=== PATIENT | female | born 1945 | race Caucasian/White ===

== ENCOUNTER 2017-06-27 08:30 | Inpatient (IN) | payer MEDICARE, OTHER ==
[~2017-06-27] VITALS: Ht 152.4 cm; Wt 69.9 kg
--- NOTE | 2017-06-27 08:40 | NUR ---
[id number] from home C/O headache since midnight. Patient is a/ox 4. breathing even and unlabored. no sob, nad. Patient is also hypertensive. safety and comfort measures in place. awaiting md orders.
--- NOTE | 2017-06-27 08:51 | NUR ---
URINE OBTAINED SENT TO LAB
--- NOTE | 2017-06-27 08:58 | NUR ---
NEW IV STARTED ON LAC, 20G. BLOOD DRAWN AND SENT TO LAB.
[2017-06-27 09:06] LABS: APPEARANCE,URINE Clear (CLEAR); BILIRUBIN,URINE Negative (NEGATIVE); BLOOD, URINE Negative Ery/uL (NEGATIVE); COLOR,URINE Yellow (YELLOW); KETONES,URINE Negative (NEGATIVE); LEUKOCYTE ESTERASE ,URINE Negative (NEGATIVE); NITRITE, URINE Negative (NEGATIVE); PROTEIN,URINE 100 mg/dl (NEGATIVE); UGLUCOSE Negative (NEGATIVE); UROBILINOGEN,URINE 0.2 EU/dL (0.2)
[2017-06-27 09:08] LABS: BASOPHILS % (AUTO) 0.8 % (0.0-2.0); EOSINOPHILS % (AUTO) 1.9 % (0.0-6.0); HEMATOCRIT 28 % (33-45); LYMPHOCYTES # (AUTO) 1.1 /CMM (0.8-4.8); LYMPHOCYTES % (AUTO) 18.1 % (20.0-44.0); MEAN CORPUSCULAR HGB CONC 35 g/dl (31.0-36.0); MEAN CORPUSCULAR VOLUME 84 fL (82-100); MONOCYTES # (AUTO) 0.8 /CMM (0.1-1.30); MONOCYTES % (AUTO) 14.3 % (2.0-12.0); NEUTROPHILS # (AUTO) 3.9 /CMM (1.8-8.9); NEUTROPHILS % (AUTO) 64.9 % (43.0-81.0); PLATELET COUNT (AUTO) 201 /CMM (150-450); RDW COEFFICIENT OF VARIATION 13.2 (11.5-15.0); RED BLOOD CELL COUNT(AUTO) 3.35 MIL/uL (4.0-5.2); WHITE BLOOD COUNT (AUTO) 5.9 K/uL (4.3-11.0)
--- NOTE | 2017-06-27 09:09 | NUR ---
patient taken to ct via stretcher.
[2017-06-27 09:17] LABS: BACTERIA,URINE None seen /HPF (None Seen); RBC,URINE 0-3 /HPF (0-2); SQUAMOUS EPITHELIAL CELL,UR Few /HPF (None Seen); WBC,URINE 0-3 /HPF (0-3)
--- NOTE | 2017-06-27 09:18 | NUR ---
PATIENT RETURNED FROM CT IN STABLE CONDITION.
[2017-06-27 09:19] LABS: ALANINE AMINOTRANSFERASE 29 U/L (12-78); ALBUMIN 3.6 g/dL (3.4-5.0); ALKALINE PHOSPHATASE 65 U/L (46-116); ASPARTATE AMINOTRANSFERASE 34 U/L (15-37); BILIRUBIN,DIRECT 0.2 mg/dL (0.0-0.2); BILIRUBIN,TOTAL 0.5 mg/dL (0.2-1.0); CALCIUM, SERUM 8.8 mg/dL (8.5-10.1); CARBON DIOXIDE 23 mmol/L (21-32); CREATININE 3.3 mg/dL (0.6-1.3); GLUCOSE 136 mg/dL (74-106); POTASSIUM 3.3 mmol/L (3.5-5.1); TOTAL PROTEIN, SERUM 7.3 g/dL (6.4-8.2); UREA NITROGEN, BLOOD 37 mg/dL (7-18)
[2017-06-27 09:21] LABS: CHLORIDE 78 mmol/L (98-107); INR 0.92 (0.85-1.15); SODIUM SERUM 112 mmol/L (136-145); TROPONIN I < 0.017 ng/mL (0.00-0.056)
--- NOTE | 2017-06-27 10:22 | NUR ---
[facility] PAGED [phone]
[2017-06-27] MEDS ORDERED: IV NS 0.9% 500 ML BAG IV ONE (10:30)
[2017-06-27] MEDS ORDERED: CALC500T51 PO (10:35)
[2017-06-27] MEDS ORDERED: ICOS1CAP PO (10:35)
[2017-06-27] MEDS ORDERED: SENN-167 PO (10:35)
[2017-06-27] MEDS ORDERED: METO10TA8 PO (10:35)
[2017-06-27] MEDS ORDERED: CARV25TA2 PO (10:35)
[2017-06-27] MEDS ORDERED: DEXL60CA3 PO (10:35)
[2017-06-27] MEDS ORDERED: FEBU40TA PO (10:35)
[2017-06-27] MEDS ORDERED: NATE120T PO (10:35)
[2017-06-27] MEDS ORDERED: LINA5TAB PO (10:35)
[2017-06-27] MEDS ORDERED: HYDR-4076 PO (10:35)
[2017-06-27] MEDS ORDERED: CLON0.2T PO (10:35)
[2017-06-27] MEDS ORDERED: GABA-532 PO (10:35)
--- NOTE | 2017-06-27 10:47 | NUR ---
REPORT GIVEN TO REANNA SMITH FOR EDITH UPON ADIMSSION.
[2017-06-27] MEDS ORDERED: IV NS 0.9% 1,000 ML IV PRN (11:11)
[2017-06-27] MEDS ORDERED: ACETAMINOPHEN 325 MG TABLET PO PRN (11:30)
[2017-06-27] MEDS ORDERED: MAG HYDROX/AL HYDROX/SIMETH 30 ML UDC PO PRN (11:30)
[2017-06-27] MEDS ORDERED: ZOLPIDEM TARTRATE 5 MG TABLET PO PRN (11:30)
[2017-06-27] MEDS: LINAGLIPTIN 5 MG TABLET PO SCH (11:30)
[2017-06-27] MEDS ORDERED: CLONIDINE HCL 0.2 MG TABLET PO PRN (11:30)
[2017-06-27] MEDS ORDERED: ONDANSETRON HCL/PF 4 MG/2 ML VIAL IVP PRN (11:30)
[2017-06-27] MEDS ORDERED: MAGNESIUM HYDROXIDE 30 ML UDC PO PRN (11:30)
[2017-06-27] MEDS ORDERED: Z GUARD REMEDY 2 OZ OINT TP PRN (11:30)
[2017-06-27] MEDS: PANTOPRAZOLE 40 MG VIAL IV SCH (11:30)
[2017-06-27] MEDS: CARVEDILOL 12.5 MG TABLET PO SCH ×2 (11:30→16:52)
[2017-06-27] MEDS ORDERED: HYDROCODONE/APAP 5/325MG 1 EACH TABLET PO PRN (11:30)
[2017-06-27] MEDS: SENNOSIDES 8.6 MG TABLET PO SCH ×2 (11:30→16:56)
--- NOTE | 2017-06-27 11:30 | NUR ---
PATIENT TRANSPORTED TO [facility] VIA ACLS PROTOCOL. RNREANNA TO PROVIDE EDITH.
[2017-06-27] MEDS ORDERED: POTASSIUM CHLORIDE 20 MEQ TAB.PRT.SR PO ONE ×3 (12:00→18:30)
[2017-06-27] MEDS ORDERED: IV Sodium Chloride 3% 500 ML 500 ML IV ONE (12:00)
[2017-06-27 13:00] VITALS: BP 134/96
[2017-06-27] MEDS ORDERED: hydrALAZINE HCL 25 MG TABLET PO SCH (13:00)
--- NOTE | 2017-06-27 13:00 | NUR ---
SENIOR QC TECHNICIAN RECEIVED REPORT FROM PALOMO SKINNER RN VIA PHONE. PT. WAS SEEN IN ROOM 317 BED 2 WITH DAUGHTER AT BEDSIDE. PT. IS A&OX4. VITALS WNL. PT. C/O RIGHT ARM, AND FOOT NUMBNESS, WITH TINGLING. NEURO CHECK WAS PERFORMED, AND WAS NOTIFIED OF PT.'S CONDITION. NEW ORDER WAS GIVEN FOR A STAT MRI OF THE BRAIN WITHOUT CONTRAST. ALL NEEDS WERE MET AT THIS TIME, WILL CONTINUE TO ASSESS AND MONITOR.
--- NOTE | 2017-06-27 13:15 | NUR ---
STORES [employer] MONITOR READING SINUS RHYTHM 70'S.
[2017-06-27 14:56] LABS: CALCIUM, SERUM 7.8 mg/dL (8.5-10.1); CREATININE 3.4 mg/dL (0.6-1.3); POTASSIUM 2.8 mmol/L (3.5-5.1)
[2017-06-27] MEDS: CALCIUM CARBONATE (1250) 500 MG TABLET PO SCH (15:45)
[2017-06-27] MEDS: NATEGLINIDE 60 MG TABLET PO SCH ×2 (15:49→16:56)
[2017-06-27 16:00] VITALS: BP 161/78
--- NOTE | 2017-06-27 17:00 | NUR ---
RN NOTE PT. REQUESTED TO HOLD BP MEDICATION DUE TO BP 119/69, AND DAUGHTER REPORTED THAT PT. TAKES BP MEDS AT HOME AT AROUND 9 PM. MEDICATION WAS HELD.
[2017-06-27 17:56] LABS: URINE SODIUM, RANDOM 51 mmol/l (40-220)
[2017-06-27 18:42] LABS: OSMOLALITY,URINE 158 mOS/kg (340-1090)
--- NOTE | 2017-06-27 19:30 | NUR ---
DENTAL TECH OPENING NOTES: PATIENT IN BED, AOX4, ON ROOM AIR, BREATHING EVEN AND UNLABORED, APPEARS CALM AND IN NO DISTRESS, DENIES PAIN, HEADACHE OR N/V. DAUGHTER AT BEDSIDE. PIV OVER LAC G 20 INTACT AND INFUSING WELL WITH 3% NS RUNNING AT 20 ML/HR. EDUCATED PATIENT AND DTR RE FREE WATER RESTRICTION OF 400 ML/DAY. PROVIDED FOR COMFORT AND SAFETY, BED IN LOWEST AND LOCKED POSITION, SIDERAILS UP X 3, CALL LIGHT WITHIN REACH. WILL CONT TO MONITOR.
--- NOTE | 2017-06-27 19:45 | NUR ---
[employer] ARCHITECT/CLOSING NOTES PT. IS IN BED A&OX4, WITH DAUGHTER AT BEDSIDE. BREATHING UNLABORED ON ROOM AIR, NO SOB. NO S/S OF ACUTE DISTRESS. 3% NORMAL SALINE FLUIDS RUNNING AT 20 ML/HR. BED IS IN LOWEST, AND LOCKED POSITION. 2 SIDE RAILS UP, AND INSTRUCTED PT. TO USE CALL LIGHT FOR ASSISTANCE. WILL ENDORSE REPORT TO NURSE.
[2017-06-27 20:00] VITALS: BP 124/55
[2017-06-27 20:01] VITALS: BP 124/55
--- NOTE | 2017-06-27 20:30 | NUR ---
RN NOTES: SPOKE TO PHARMACISTCARMINA. PER DAUGHTER, PATIENT USUALLY GETS THE HYDRALAZINE AT HOME THREE TIMES A DAY BUT AT A SCHEDULE OF 9AM-3PM-9PM. INFORMED PHARMACIST RE SCHEDULE. MEDICATION SCHEDULE ADJUSTED. WILL CONT TO MONITOR.
[2017-06-27 21:00] VITALS: BP 139/71
--- NOTE | 2017-06-27 21:20 | NUR ---
RN NOTES: RECHECKED BP AT 139/71, HR: 67. PATIENT HAS SCHEDULED HYDRALAZINE AT THIS TIME, HOWEVER, PER DAUGHTER, AT HOME, SHE HOLDS IT IF SBP IS 140 MMHG OR LOWER. SHE ASKED FOR ANOTHER BP CHECK AT 2200 PM. DID NOT ADMINISTER HYDRALAZINE AT THIS TIME.
[2017-06-27 22:00] VITALS: BP 139/59
[2017-06-27] MEDS: hydrALAZINE HCL 25 MG TABLET PO SCH (22:00)
--- NOTE | 2017-06-27 22:10 | NUR ---
RN NOTES: RECHECKED BP AGAIN, THIS TIME 139/59. HYDRALAZINE NOT GIVEN. HOWEVER, DAUGHTER REQUESTED THAT BP BE RECHECKED AGAIN AT 0000 MIDNIGHT BEFORE WE CAN TOTALLY NON ADMINISTER HYDRALAZINE. EXPLAINED THAT THERE IS ALSO PRN CLONIDINE, HOWEVER, DTR PREFERS THAT HYDRALAZINE BE GIVEN FOR SBP >140 MMHG, AND THAT CLONIDINE IS ONLY FOR "EMERGENCY".
[2017-06-27] MEDS: GABAPENTIN 100 MG CAPSULE PO SCH (22:17)
[2017-06-28] VITALS: BP 109/58
[2017-06-28 04:00] VITALS: BP 143/66
[2017-06-28 04:15] VITALS: BP 143/66
[2017-06-28 06:57] VITALS: BP 130/65
--- NOTE | 2017-06-28 06:57 | NUR ---
DIESEL FLEET MECHANIC CLOSING NOTES: PATIENT IN BED, AOX4, ON ROOM AIR, BREATHING EVEN AND UNLABORED. APPEARS CALM AND IN NO DISTRESS. DENIES PAIN. PIV OVER LAC G 20 INTACT AND STILL INFUSING WITH 3% NS RUNNING AT 20 ML/HR. REITERATED INSTRUCTIONS RE KEEPING FREE WATER INTAKE TO 400 ML/DAY, REMAINING 100 ML WATER WILL BE FOR UNTIL NOONTIME. DUE MEDS GIVEN, PROVIDED FOR COMFORT AND SAFETY. BED IN LOWEST AND LOCKED POSITION, SIDERAILS UP X 3, CALL LIGHT WITHIN REACH. DAUGHTER AT BEDSIDE. WILL ENDORSE TO AM RN FOR EDITH.
[2017-06-28] MEDS: SENNOSIDES 8.6 MG TABLET PO SCH ×2 (07:04→18:06)
--- NOTE | 2017-06-28 08:00 | NUR ---
CAR FILLER AM NOTES: PATIENT IN BED, AOX4, ON ROOM AIR, BREATHING EVEN AND UNLABORED. APPEARS CALM AND IN NO DISTRESS. DENIES PAIN. PIV OVER LAC G 20 INTACT AND STILL INFUSING WITH 3% NS RUNNING AT 20 ML/HR. REITERATED INSTRUCTIONS RE KEEPING FREE WATER INTAKE TO 400 ML/DAY, REMAINING 100 ML WATER WILL BE FOR UNTIL NOONTIME. DUE MEDS GIVEN, PROVIDED FOR COMFORT AND SAFETY. BED IN LOWEST AND LOCKED POSITION, SIDERAILS UP X 3, CALL LIGHT WITHIN REACH. DAUGHTER AT BEDSIDE.
[2017-06-28 08:20] LABS: HEMATOCRIT 27 % (33-45); HEMOGLOBIN 9.2 g/dL (11.5-14.8); MEAN CORPUSCULAR HGB CONC 34 g/dl (31.0-36.0); MEAN CORPUSCULAR VOLUME 87 fL (82-100); PLATELET COUNT (AUTO) 188 /CMM (150-450); RDW COEFFICIENT OF VARIATION 13.6 (11.5-15.0); RED BLOOD CELL COUNT(AUTO) 3.14 MIL/uL (4.0-5.2); WHITE BLOOD COUNT (AUTO) 5.6 K/uL (4.3-11.0)
[2017-06-28 08:31] LABS: ALBUMIN 3.2 g/dL (3.4-5.0); BILIRUBIN,TOTAL 0.4 mg/dL (0.2-1.0); CREATININE 3.9 mg/dL (0.6-1.3); MAGNESIUM 1.6 mg/dL (1.8-2.4); PHOSPHORUS 5.3 mg/dL (2.5-4.9); POTASSIUM 3.6 mmol/L (3.5-5.1); TOTAL PROTEIN, SERUM 6.1 g/dL (6.4-8.2)
[2017-06-28 08:34] LABS: THYROID STIMULATING HORMONE 5.309 uIU/mL (0.358-3.74); URIC ACID 5.7 mg/dL (2.6-7.2)
[2017-06-28] MEDS: LINAGLIPTIN 5 MG TABLET PO SCH (09:33)
[2017-06-28] MEDS: hydrALAZINE HCL 25 MG TABLET PO SCH ×3 (09:33→21:00)
[2017-06-28] MEDS: PANTOPRAZOLE 40 MG VIAL IV SCH (09:33)
[2017-06-28] MEDS: CARVEDILOL 12.5 MG TABLET PO SCH ×2 (09:34→18:05)
[2017-06-28] MEDS: CALCIUM CARBONATE (1250) 500 MG TABLET PO SCH (09:34)
[2017-06-28] MEDS: NATEGLINIDE 60 MG TABLET PO SCH ×3 (09:36→18:05)
[2017-06-28 11:05] LABS: EOSINOPHILS % (MANUAL) 2 % (0-4); LYMPHOCYTES % (MANUAL) 26 % (16-48); MONOCYTES % (MANUAL) 8 % (0-11.0); NEUTROPHILS % (MANUAL) 64 (42-76)
[2017-06-28] MEDS ORDERED: IV NS 0.9% 1,000 ML BAG IV SCH (12:00)
[2017-06-28 12:14] LABS: OSMOLALITY,URINE 166 mOS/kg (340-1090)
[2017-06-28 12:23] LABS: URINE SODIUM, RANDOM 42 mmol/l (40-220)
[2017-06-28] MEDS: ASPIRIN EC 325 MG TABLET.DR PO SCH (12:30)
[2017-06-28] MEDS: IV NS 0.9% 1,000 ML IV PRN (13:23)
[2017-06-28] MEDS: Magnesium 1GM/D5W 100ML PREMIX 100 ML IV SCH ×2 (13:23→14:49)
[2017-06-28 16:11] VITALS: BP 118/61
[2017-06-28 16:47] LABS: CREATININE 3.9 mg/dL (0.6-1.3); POTASSIUM 3.3 mmol/L (3.5-5.1)
--- NOTE | 2017-06-28 18:35 | NUR ---
DR VICTORYAn aware of tpt's sodium level of 128 with no new order.
--- NOTE | 2017-06-28 19:00 | NUR ---
PT RESTING IN BED SURROUNDED BY HER FAMILY MEMBERS AT BEDSIDE.DENYING ANY PAIN OR DISTRESS.WITH ONGOING IVF OF NS AT 50 ML/HR INFUSING WELL.CALL LIGHT PLACED WITHIN REACH.
--- NOTE | 2017-06-28 19:30 | NUR ---
MS RN OPENING NOTES: PATIENT SITTING ON CHAIR, HAVING DINNER WITH FAMILY IN ROOM. ON ROOM AIR, BREATHING EVEN AND UNLABORED, BREATH SOUNDS CLEAR TO AUSCULTATION, APPEARS CALM AND IN NO DISTRESS, DENIES PAIN. PIV OVER LAC G 20 INTACT AND INFUSING WELL WITH NS RUNNING AT 50 ML/HR. PER DAUGHTER/ CAREGIVER, PATIENT SEEMS TO BE STRONGER AND FEELING BETTER. PROVIDED FOR COMFORT AND SAFETY. BED IN LOWEST AND LOCKED POSITION, SIDERAILS UP X 3, CALL LIGHT WITHIN REACH. WILL CONT TO MONITOR.
[2017-06-28 20:00] VITALS: BP 152/71
[2017-06-28] MEDS: GABAPENTIN 100 MG CAPSULE PO SCH (21:15)
--- NOTE | 2017-06-28 21:18 | NUR ---
RN NOTES: BP RECHECKED AT 115/63, HR: 63 OVER R ARM, 116/57 OVER LEFT ARM. HELD HYDRALAZINE FOR NOW, BUT DAUGHTER WANTS BP TO BE RECHECKED AT 0000 MIDNIGHT AND IF WARRANTED, TO GIVE HYDRALAZINE.
[2017-06-28] MEDS ORDERED: ATORVASTATIN 40 MG TABLET PO SCH (22:00)
--- NOTE | 2017-06-28 22:07 | NUR ---
RN NOTES: PATIENT HAD A REPEAT BMP WHICH RESULTED AT 1615 PM TODAY. SERUM K: 3.3, DECREASED FROM THE AM SERUM K WHICH WAS 3.3. HOWEVER, BUN AND CREA REMAINS ELEVATED. CALLED DR MEDELLIN TO SEE IF SHE WILL ORDER REPLACEMENT. AWAITING CALL BACK.
--- NOTE | 2017-06-28 22:34 | NUR ---
RN NOTES: RECEIVED CALL BACK FROM DR MEDELLIN, PER , REPLACEMENT WILL BE DONE IN AM, NO NEED TO REPLACE K FOR NOW. WILL RECHECK LABS.
[2017-06-29 00:24] VITALS: BP 124/61
[2017-06-29] MEDS: SENNOSIDES 8.6 MG TABLET PO SCH (06:08)
[2017-06-29] MEDS: IV NS 0.9% 1,000 ML IV PRN (07:05)
--- NOTE | 2017-06-29 07:08 | NUR ---
MS RN CLOSING NOTES: PATIENT IN BED, AOX4, ON ROOM AIR, BREATHING EVEN AND UNLABORED. APPEARS CALM AND IN NO DISTRESS. PIV OVER LAC G 20 INTACT AND PATENT, INFUSING WELL WITH NS RUNNING AT 50 ML/HR. PROVIDED FOR COMFORT AND SAFETY. BED IN LOWEST AND LOCKED POSITION, SIDERAILS UP X 3, CALL LIGHT WITHIN REACH. NO ACUTE CHANGE IN CONDITION NOTED THROUGH SHIFT. WILL ENDORSE TO AM RN FOR EDITH.
[2017-06-29 07:19] LABS: BASOPHILS % (AUTO) 0.6 % (0.0-2.0); EOSINOPHILS % (AUTO) 3.4 % (0.0-6.0); HEMATOCRIT 26 % (33-45); HEMOGLOBIN 8.8 g/dL (11.5-14.8); LYMPHOCYTES # (AUTO) 1.8 /CMM (0.8-4.8); LYMPHOCYTES % (AUTO) 26.6 % (20.0-44.0); MEAN CORPUSCULAR HGB CONC 34 g/dl (31.0-36.0); MEAN CORPUSCULAR VOLUME 86 fL (82-100); MONOCYTES # (AUTO) 0.9 /CMM (0.1-1.30); MONOCYTES % (AUTO) 13.1 % (2.0-12.0); NEUTROPHILS # (AUTO) 3.8 /CMM (1.8-8.9); NEUTROPHILS % (AUTO) 56.3 % (43.0-81.0); PLATELET COUNT (AUTO) 183 /CMM (150-450); RDW COEFFICIENT OF VARIATION 15.2 (11.5-15.0); RED BLOOD CELL COUNT(AUTO) 3.04 MIL/uL (4.0-5.2); WHITE BLOOD COUNT (AUTO) 6.8 K/uL (4.3-11.0)
[2017-06-29 07:32] LABS: ALBUMIN 3.2 g/dL (3.4-5.0); BILIRUBIN,TOTAL 0.3 mg/dL (0.2-1.0); CALCIUM, SERUM 7.6 mg/dL (8.5-10.1); MAGNESIUM 2.7 mg/dL (1.8-2.4); PHOSPHORUS 4.7 mg/dL (2.5-4.9); POTASSIUM 3.6 mmol/L (3.5-5.1); TOTAL PROTEIN, SERUM 6.4 g/dL (6.4-8.2)
[2017-06-29 07:44] LABS: THYROID STIMULATING HORMONE 4.401 uIU/mL (0.358-3.74)
[2017-06-29 08:00] VITALS: BP 158/85
--- NOTE | 2017-06-29 08:00 | NUR ---
MS RN AM NOTES: PATIENT IN BED, AOX4, ON ROOM AIR, BREATHING EVEN AND UNLABORED. APPEARS CALM AND IN NO DISTRESS. DENIES PAIN. PIV OVER LAC G 20 INTACT AND STILL INFUSING WITH NS RUNNING AT 50 ML/HR. REITERATED INSTRUCTIONS RE KEEPING FREE WATER INTAKE TO 400 ML/DAY, DUE MEDS GIVEN, PROVIDED FOR COMFORT AND SAFETY. BED IN LOWEST AND LOCKED POSITION, SIDERAILS UP X 3, CALL LIGHT WITHIN REACH. DAUGHTER AT BEDSIDE.
[2017-06-29] MEDS: ASPIRIN EC 325 MG TABLET.DR PO SCH (09:00)
[2017-06-29] MEDS: PANTOPRAZOLE 40 MG VIAL IV SCH (09:28)
[2017-06-29] MEDS: NATEGLINIDE 60 MG TABLET PO SCH ×2 (09:28→13:52)
[2017-06-29] MEDS: CALCIUM CARBONATE (1250) 500 MG TABLET PO SCH (09:28)
[2017-06-29] MEDS: LINAGLIPTIN 5 MG TABLET PO SCH (09:28)
[2017-06-29] MEDS: hydrALAZINE HCL 25 MG TABLET PO SCH (09:31)
[2017-06-29] MEDS: CARVEDILOL 12.5 MG TABLET PO SCH (09:31)
[2017-06-29] MEDS ORDERED: AMLODIPINE BESYLATE 10 MG TABLET PO SCH (12:30)
[2017-06-29 13:52] VITALS: BP 136/52
--- NOTE | 2017-06-29 15:00 | NUR ---
DISCHARGE INSTRUCTIONS,MED RECONCILIATION,PRESCRIPTIONS GIVEN TO THE PT.IV H/L REMOVED TO LAC REMOVED WITHOUT BLEEDING NOTED.PT TOLERATED WELL.PT DENIES ANY PAIN OR DISTRESS.ACCOMPANIED BY HER DAUGHTER.DISCHARGED HOME WITH STABLE V/S.
== END 2017-06-29 15:00 | disposition home or self-care (01) | DRG 640 ==
LOC: ER 08:31 → TELE 11:07 → MED 06-28 13:16
PROVIDERS: ADMIT Internal Medicine; ATTEND Internal Medicine
DX: E87.1 Hypo-osmolality and hyponatremia (principal); G93.41 Metabolic encephalopathy; N17.0 Acute kidney failure with tubular necrosis; N18.4 Chronic kidney disease, stage 4 (severe); D63.8 Anemia in other chronic diseases classified elsewhere; E11.22 Type 2 diabetes mellitus with diabetic chronic kidney disease; E83.42 Hypomagnesemia; I12.9 Hypertensive chronic kidney disease with stage 1 through stage 4 chronic kidney disease, or unspecified chronic kidney disease; Z86.73 Personal history of transient ischemic attack (TIA), and cerebral infarction without residual deficits; T50.2X5A Adverse effect of carbonic-anhydrase inhibitors, benzothiadiazides and other diuretics, initial encounter; Y92.89 Other specified places as the place of occurrence of the external cause; E87.8 Other disorders of electrolyte and fluid balance, not elsewhere classified; E87.6 Hypokalemia; R51 Headache; E78.5 Hyperlipidemia, unspecified; K21.9 Gastro-esophageal reflux disease without esophagitis; I16.0 Hypertensive urgency
CPT/HCPCS: 36415; 70450-TC; 70551-TC; 71045-TC; 80048-TC; 80053-TC; 80061-TC; 80076-TC; 81000-TC; 82962-TC; 83735-TC; 83935-TC; 84100-TC; 84300-TC; 84443-TC; 84484-TC; 84550-TC; 85025-TC; 85730-TC; 87081-TC; 87086-TC; 93307-TC; A4606; C9113; J3475; J3490; J7030; J7040; Z7610

== ENCOUNTER 2019-12-16 09:10 | Outpatient (CLI) | payer MEDICARE, OTHER ==
[~2019-12-16 09:10] MED LIST: CALC500T53 PO; CARV25TA2 PO; CLON0.2T PO; DEXL60CA3 PO; FEBU40TA PO; GABA-532 PO; HYDR-4076 PO; ICOS1CAP PO; LINA5TAB PO; METO10TA8 PO; NATE120T PO; SENN-261 PO
[2019-12-16 10:00] LABS: BASOPHILS % (AUTO) 0.2 % (0.0-2.0); EOSINOPHILS % (AUTO) 1.7 % (0.0-6.0); HEMATOCRIT 29 % (33-45); HEMOGLOBIN 9.6 g/dL (11.5-14.8); LYMPHOCYTES # (AUTO) 0.7 /CMM (0.8-4.8); LYMPHOCYTES % (AUTO) 10.7 % (20.0-44.0); MEAN CORPUSCULAR HGB CONC 33 g/dl (31.0-36.0); MEAN CORPUSCULAR VOLUME 99 fL (82-100); MONOCYTES # (AUTO) 0.7 /CMM (0.1-1.30); MONOCYTES % (AUTO) 11.5 % (2.0-12.0); NEUTROPHILS # (AUTO) 4.7 /CMM (1.8-8.9); NEUTROPHILS % (AUTO) 75.9 % (43.0-81.0); PLATELET COUNT (AUTO) 137 /CMM (150-450); RED BLOOD CELL COUNT(AUTO) 2.92 MIL/uL (4.0-5.2); WHITE BLOOD COUNT (AUTO) 6.2 K/uL (4.3-11.0)
[2019-12-16 11:14] LABS: ALANINE AMINOTRANSFERASE 19 U/L (12-78); ALBUMIN 3.6 g/dL (3.4-5.0); ALKALINE PHOSPHATASE 58 U/L (46-116); ASPARTATE AMINOTRANSFERASE 21 U/L (15-37); BILIRUBIN,TOTAL 0.6 mg/dL (0.2-1.0); CALCIUM, SERUM 7.8 mg/dL (8.5-10.1); CARBON DIOXIDE 28 mmol/L (21-32); CHLORIDE 97 mmol/L (98-107); CREATININE 4.1 mg/dL (0.6-1.3); GLUCOSE 180 mg/dL (74-106); MAGNESIUM 1.9 mg/dL (1.8-2.4); POTASSIUM 3.3 mmol/L (3.5-5.1); SODIUM SERUM 134 mmol/L (136-145); TOTAL PROTEIN, SERUM 6.5 g/dL (6.4-8.2); UREA NITROGEN, BLOOD 12 mg/dL (7-18)
== END 2019-12-16 23:59 | disposition home or self-care (01) ==
LOC: MSC 09:10
PROVIDERS: ATTEND Internal Medicine
DX: E11.22 Type 2 diabetes mellitus with diabetic chronic kidney disease (principal); I12.0 Hypertensive chronic kidney disease with stage 5 chronic kidney disease or end stage renal disease; N18.5 Chronic kidney disease, stage 5; R51 Headache; E11.40 Type 2 diabetes mellitus with diabetic neuropathy, unspecified; I69.351 Hemiplegia and hemiparesis following cerebral infarction affecting right dominant side; E78.5 Hyperlipidemia, unspecified; D64.9 Anemia, unspecified; Z79.899 Other long term (current) drug therapy
CPT/HCPCS: 36415; 80053; 83735; 84100; 85025; G0463